=== PATIENT | male | born 1955 | race Caucasian/White ===

== ENCOUNTER 2018-03-29 19:20 | Emergency (ER) | payer MEDICARE, OTHER ==
[~2018-03-29] VITALS: Ht 185.4 cm; Wt 125.9 kg
[~2018-03-29 19:20] MED LIST: AMIO200T46 PO; AMLO2.5T78 PO; ATOR20TA38 PO; LISI-525 PO; METO-429 PO
[2018-03-29 19:32] VITALS: Ht 185.4 cm; Wt 125.9 kg
[2018-03-29] MEDS ORDERED: SOD CHLORIDE 0.9% 1,000 ML IV STA (20:31)
[2018-03-29] MEDS ORDERED: PANT40TA4 PO (21:32)
[2018-03-29] MEDS ORDERED: LISI40TA3 PO (21:32)
[2018-03-29] MEDS ORDERED: ATOR-2 PO (21:32)
[2018-03-29] MEDS ORDERED: ACET-141 PO (21:33)
[2018-03-29] MEDS ORDERED: CYAN500T46 PO (21:33)
[2018-03-29] MEDS ORDERED: LIDOCAINE 1% (MDV) 10 ML INJ INJ STA (22:16)
--- NOTE | 2018-03-29 22:32 | ERD ---
ER Documentation Chief Complaint Chief Complaint BIBA from home with c/o lac to left eyebrow s/p fall due to weakness/dizzy HPI 63-year-old male with a history of "brain tumor" status post resection on chemotherapy brought in by ambulance from home after feeling generally weak and dizzy while walking to the bathroom. He never lost consciousness but he fell against the wall hitting the front of his head. He did sustain a laceration to his left eyebrow. He denies any headache, nausea, vomiting, vision disturbance, focal weakness or numbness. He usually uses a walker or wheelchair at home but he was not using either when he was going to the bathroom. His last chemotherapy was a few days ago. He states that every time after chemotherapy, he has similar symptoms. Currently he has no other complaints. Denies any chest pain or shortness of breath. No recent illnesses. No fevers or chills. No recent vomiting or diarrhea ROS All systems reviewed and are negative except as per history of present illness. Medications Home Meds Reported Medications Cyanocobalamin* (Vitamin B12*) 500 Mcg Tab, 1000 MCG PO DAILY, TAB 03/29/18 Acetaminophen* (Acetaminophen*) 500 MG Extra Strength Tablet, 500 MG PO Q4H PRN for PAIN AND OR ELEVATED TEMP, TAB 03/29/18 Lisinopril* (Lisinopril*) 40 Mg Tablet, 40 MG PO DAILY, #30 TAB 03/29/18 Pantoprazole* (Pantoprazole*) 40 Mg Tablet.dr, 40 MG PO AC BREAKFAST, TAB 03/29/18 Atorvastatin* (Atorvastatin*) 80 Mg Tablet, 80 MG PO QHS, #30 TAB 03/29/18 Discontinued Scripts Amlodipine Besylate* (Amlodipine Besylate*) 2.5 Mg Tablet, 5 MG PO DAILY, #30 TAB Prov:VERENA VALENTINO MD 06/15/14 Metoprolol Tartrate* (Lopressor*) 50 Mg Tab, 50 MG PO BID, #60 TAB Prov:VERENA VALENTINO MD 06/14/14 Lisinopril* (Zestril*) 20 Mg Tab, 40 MG PO DAILY, #30 TAB Prov:VERENA VALENTINO MD 06/14/14 Atorvastatin Calcium* (Atorvastatin Calcium*) 20 Mg Tab, 20 MG PO HS, #30 TAB Prov:VERENA VALENTINO MD 06/14/14 Amiodarone Hcl* (Cordarone*) 200 Mg Tab, 200 MG PO DAILY, #30 TAB Prov:VERENA VALENTINO MD 06/14/14 Allergies Allergies: Coded Allergies: No Known Allergy (Unverified , 06/13/14) PMhx/Soc History of Surgery: Yes (Craniectomy with tumor resection) Anesthesia Reaction: No Hx Neurological Disorder: Yes (Brain tumor) Hx Respiratory Disorders: No Hx Cardiac Disorders: Yes (Hypertension, A. fib) Hx Psychiatric Problems: No Hx Miscellaneous Medical Probl: No Hx Alcohol Use: Yes (1/2 glass wine every 2-3 weeks) Hx Substance Use: No Hx Tobacco Use: No Smoking Status: Unknown if ever smoked FmHx Family History: No diabetes Physical Exam Vitals Vital Signs Date Temp Pulse Resp B/P (MAP) Pulse Ox O2 O2 Flow FiO2 Time Delivery Rate 03/29/18 87 13 172/127 99 Room Air 23:22 (142) 03/29/18 99 16 153/119 98 Room Air 21:09 (130) 03/29/18 98.7 95 20 162/120 100 19:32 (134) Physical Exam Const: No acute distress Head: Atraumatic Eyes: Normal Conjunctiva ENT: Normal External Ears, Nose and Mouth. Neck: Full range of motion. No meningismus. Resp: Clear to auscultation bilaterally Cardio: Regular rate and rhythm, no murmurs Abd: Soft, non tender, non distended. Normal bowel sounds Skin: No petechiae or rashes Back: No midline or flank tenderness Ext: No cyanosis, or edema Neur: Awake and alert Psych: Normal Mood and Affect Result Diagram: 03/29/18192703/29/181927 Results 24 hrs Laboratory Tests Test 03/29/18 19:27 03/29/18 19:28 03/29/18 21:10 Bedside Glucose 94 mg/dL White Blood Count 9.0 10^3/ul Red Blood Count 4.71 10^6/ul Hemoglobin 15.5 g/dl Hematocrit 47.1 % Mean Corpuscular Volume 100.0 fl Mean Corpuscular Hemoglobin 32.9 pg Mean Corpuscular 32.9 g/dl Hemoglobin Concent Red Cell Distribution Width 13.5 % Platelet Count 196 10^3/UL Mean Platelet Volume 10.1 fl Immature Granulocytes % 0.400 % Neutrophils % 76.7 % Lymphocytes % 10.8 % Monocytes % 10.2 % Eosinophils % 1.2 % Basophils % 0.7 % Nucleated Red Blood Cells % 0.0 /100WBC Immature Granulocytes # 0.040 10^3/ul Neutrophils # 6.9 10^3/ul Lymphocytes # 1.0 10^3/ul Monocytes # 0.9 10^3/ul Eosinophils # 0.1 10^3/ul Basophils # 0.1 10^3/ul Nucleated Red Blood Cells # 0.0 10^3/ul Sodium Level 141 mmol/L Potassium Level 4.3 mmol/L Chloride Level 101 mmol/L Carbon Dioxide Level 30 mmol/L Anion Gap 10 Blood Urea Nitrogen 14 mg/dl Creatinine 1.04 mg/dl Est Glomerular Filtrat > 60 mL/min Rate mL/min Glucose Level 105 mg/dl Calcium Level 9.7 mg/dl Troponin I < 0.012 ng/ml Urine Color YELLOW Urine Clarity CLEAR Urine pH 7.0 Urine Specific [place] 1.027 Urine Ketones NEGATIVE mg/dL Urine Nitrite NEGATIVE mg/dL Urine Bilirubin NEGATIVE mg/dL Urine Urobilinogen NEGATIVE mg/dL Urine Leukocyte Esterase NEGATIVE Pamela/ul Urine Hemoglobin NEGATIVE mg/dL Urine Glucose NEGATIVE mg/dL Urine Total Protein NEGATIVE mg/dl Current Medications Medications Dose Sig/José Luis Start Time Status Last (Trade) Ordered Route PRN Stop Time Admin Dose Reason Admin Sodium 1,000 ml @ Q1H STAT 03/29/18 DC 03/29/18 Chloride 1,000 mls/hr IV 20:31 20:46 03/29/18 21:30 Lidocaine 10 ml ONCE STAT 03/29/18 Cancel HCl INJ 22:16 (Lidocaine 03/29/18 22:17 1% (Mdv) 10 ml) Lidocaine 10 ml ONCE ONCE 03/29/18 DC (Xylocaine INJ 22:38 1% (Mdv) 20 03/29/18 22:39 ml) Procedures/MDM EMERGENT LABS AND DIAGNOSTIC STUDIES: Lab Results above were reviewed and interpreted by me. CBC: no anemia or evidence of infection CMP: No evidence of electrolyte abnormality, renal failure, hypoglycemia, liver failure, or biliary obstruction Troponin within normal limits, not indicative of cardiac ischemia UA: no evidence of infection 12-lead EKG was interpreted by Jayda Mendez MD: Sinus rhythm with first-degree AV block Normal axis Nonspecific interventricular conduction delay No acute ST or T wave changes suggestive of acute ischemia or STEMI. Radiology Results as interpreted by Radiology below were reviewed by Ashley Mendez MD: Chest x-ray shows no acute abnormalities CT head shows no acute abnormalities Initial Nursing notes reviewed. Previous Medical Records requested via the Electronic Health Record. EMERGENCY DEPARTMENT COURSE / MEDICAL DECISION MAKING: Laceration Repair by me: Anesthesia: 1% lidocaine locally Location: Left medial eyebrow Tendon/Joint/Nerves: No injury Foreign body: None detected after copious irrigation and exploration Technique: Simple Interrupted Sutures x 3 Complexity: No subcutaneous sutures/mucosal repair/edge excision Post Closure Length: 1.5 cm 48 hour wound check. Scar minimization instructions given. Patient is presenting after a ground-level fall after feeling generally weak. Vitals are stable and he is afebrile. Neurovascularly intact on exam. He did have a head injury with a facial laceration. CT head was done and did not show any acute intracranial abnormalities and did not show any skull fracture. EKG is not consistent with acute coronary syndrome. Troponin is within normal limits. Labs are unremarkable. No evidence of acute infection. Patient states that he would rather go home and did not be admitted. He states that this happens frequently after chemotherapy. He feels much better now upon reevaluation and would like to go home. Return precautions discussed. He has a walker and wheelchair at home. He is receiving assistance from his roommate. Return precautions were discussed. Laceration was repaired and suture removal was recommended within 5-7 days. Patient's blood pressure was elevated (>120/80) but appears stable without evidence of hypertensive emergency or urgency. The patient was counseled about the risks of hypertension and urged to pursue outpatient monitoring and therapy within a week with their primary care physician. Departure Diagnosis: Primary Impression: Fall Encounter type: initial encounter Qualified Codes: W19.XXXA - Unspecified fall, initial encounter Additional Impressions: Facial laceration Encounter type: initial encounter Qualified Codes: S01.81XA - Laceration without foreign body of other part of head, initial encounter Generalized weakness Condition: Stable EKANGELA BOCANEGRA MD Mar 29, 2018 22:32
[2018-03-29] MEDS ORDERED: LIDOCAINE 1% (MDV) 20 ML INJ INJ ONE (22:38)
[2018-03-29 23:22] VITALS: BP 172/127; PULSE 87; RESP 13
== END 2018-03-29 23:30 | disposition home or self-care (01) ==
LOC: E/R 19:20
DX: S01.112A Laceration without foreign body of left eyelid and periocular area, initial encounter (principal); R53.1 Weakness; I10 Essential (primary) hypertension; R51 Headache; R55 Syncope and collapse; W01.198A Fall on same level from slipping, tripping and stumbling with subsequent striking against other object, initial encounter; Y92.9 Unspecified place or not applicable; Z85.841 Personal history of malignant neoplasm of brain
CPT/HCPCS: 12011; 36415; 70450; 71045; 80048; 81003; 82962; 84484; 85025; 99285; J7030; 93005

== ENCOUNTER 2018-07-11 15:45 | Emergency (ER) | payer MEDICARE ==
[~2018-07-11] VITALS: Ht 185.4 cm; Wt 120.5 kg
[~2018-07-11 15:45] MED LIST changes: +ACET-141 PO; -AMIO200T46 PO; -AMLO2.5T78 PO; +ATOR-2 PO; -ATOR20TA38 PO; +CYAN500T46 PO; -LISI-525 PO; +LISI40TA3 PO; -METO-429 PO; +PANT40TA4 PO
[2018-07-11 16:02] VITALS: Ht 185.4 cm; Wt 120.5 kg
[2018-07-11] MEDS ORDERED: LACTATED RINGER'S 1,000 ML IV STA (16:12)
[2018-07-11] MEDS ORDERED: LIDOCAINE 1% (MDV) 20 ML INJ SC ONE (16:30)
--- NOTE | 2018-07-11 17:18 | ERD ---
ER Documentation Chief Complaint Chief Complaint glf with head injury-no ko. lac to the head HPI 63-year-old male with a history of "brain tumor" status post resection on chemotherapy brought in by ambulance from home after falling out of his wheelchair. He denies seizures or syncopal episode, he had no loss of bowel or bladder control. Patient states this happens to him about once per month and patient was here 4 months ago for exactly the same thing. He denies any vomiting, vision disturbance, focal weakness or numbness. He usually uses a walker or wheelchair at home and states he simply fell and lost balance when transferring from wheelchair to bed. His last chemotherapy was a few days ago. He states that every time after chemotherapy, he has similar symptoms. Currently he has no other complaints. Denies any chest pain or shortness of breath. No recent illnesses. No fevers or chills. No recent vomiting or d iarrhea ROS All systems reviewed and are negative except as per history of present illness. Medications Home Meds Reported Medications Acetaminophen* (Acetaminophen*) 500 MG Extra Strength Tablet, 500 MG PO Q4H PRN for PAIN AND OR ELEVATED TEMP, TAB 03/29/18 Lisinopril* (Lisinopril*) 40 Mg Tablet, 40 MG PO DAILY, #30 TAB 03/29/18 Pantoprazole* (Pantoprazole*) 40 Mg Tablet.dr, 40 MG PO AC BREAKFAST, TAB 03/29/18 Atorvastatin* (Atorvastatin*) 80 Mg Tablet, 80 MG PO QHS, #30 TAB 03/29/18 Discontinued Reported Medications Cyanocobalamin* (Vitamin B12*) 500 Mcg Tab, 1000 MCG PO DAILY, TAB 03/29/18 Allergies Allergies: Coded Allergies: No Known Allergy (Unverified , 07/11/18) PMhx/Soc History of Surgery: Yes (Craniectomy with tumor resection) Anesthesia Reaction: No Hx Neurological Disorder: Yes (Brain tumor) Hx Respiratory Disorders: No Hx Cardiac Disorders: Yes (Hypertension, A. fib) Hx Psychiatric Problems: No Hx Miscellaneous Medical Probl: No Hx Alcohol Use: Yes (1/2 glass wine every 2-3 weeks) Hx Substance Use: No Hx Tobacco Use: No Smoking Status: Never smoker Physical Exam Vitals Vital Signs Date Temp Pulse Resp B/P (MAP) Pulse Ox O2 O2 Flow FiO2 Time Delivery Rate 07/11/18 97.7 90 20 110/84 100 Room Air 19:20 (93) 07/11/18 98 18 127/117 98 18:13 (120) 07/11/18 97.7 113 18 150/89 97 Room Air 16:36 (109) 07/11/18 97.7 107 18 155/78 97 16:02 (103) Physical Exam Const: No acute distress, afebrile, appears dehydrated HEENT: 7 cm laceration across the mid forehead, no cervical spine deformity, dry mucous membranes Resp: Clear to auscultation bilaterally Cardio: Tachycardic and regular Abd: Soft, non tender, non distended. Skin: No petechiae or rashes. Larger laceration to the mid forehead Back: No midline or flank tenderness Ext: No cyanosis, or edema, distal pulses equal bilateral Neur: Awake and alert x3, no focal deficits or facial asymmetry, pupils equal round reactive to light, moving all extremities Psych: Normal Mood and Affect Result Diagram: 07/11/18 1626 07/11/18 1626 Results 24 hrs Laboratory Tests Test 07/11/18 16:26 White Blood Count 5.4 10^3/ul Red Blood Count 3.79 10^6/ul Hemoglobin 13.2 g/dl Hematocrit 39.1 % Mean Corpuscular Volume 103.2 fl Mean Corpuscular Hemoglobin 34.8 pg Mean Corpuscular Hemoglobin Concent 33.8 g/dl Red Cell Distribution Width 16.7 % Platelet Count 55 10^3/UL Mean Platelet Volume 10.5 fl Immature Granulocytes % 0.200 % Neutrophils % % Segmented Neutrophils % (Manual) 82 % Lymphocytes % % Lymphocytes % (Manual) 9 % Reactive Lymphocytes % (Manual) 3 % Monocytes % % Monocytes % (Manual) 6 % Eosinophils % % Basophils % % Nucleated Red Blood Cells % 0.0 /100WBC Immature Granulocytes # 0.010 10^3/ul Neutrophils # 10^3/ul Lymphocytes (Manual) 0.4 10^3/ul Lymphocytes # 10^3/ul Reactive Lymphocytes # 0.1 10^3/ul Monocytes # 10^3/ul Monocytes # (Manual) 0.3 10^3/ul Eosinophils # 10^3/ul Basophils # 10^3/ul Nucleated Red Blood Cells # 10^3/ul Giant Platelets 2 % Anisocytosis 1+ Sodium Level 142 mmol/L Potassium Level 3.8 mmol/L Chloride Level 109 mmol/L Carbon Dioxide Level 24 mmol/L Anion Gap 9 Blood Urea Nitrogen 16 mg/dl Creatinine 1.05 mg/dl Est Glomerular Filtrat Rate mL/min > 60 mL/min Glucose Level 143 mg/dl Calcium Level 9.2 mg/dl Troponin I < 0.012 ng/ml Ethyl Alcohol Level < 10.0 mg/dl Current Medications Medications Dose Sig/José Luis Start Time Status Last (Trade) Ordered Route PRN Stop Time Admin Dose Reason Admin Lidocaine 20 ml ONCE ONCE 07/11/18 DC (Xylocaine SC 16:30 07/11/18 1% (Mdv) 20 16:31 ml) Lactated 1,000 ml @ Q1H STAT 07/11/18 DC 07/11/18 Ringer's 1,000 mls/hr IV 16:12 07/11/18 17:12 17:11 Procedures/MDM IV line was established patient was placed on potline monitor rhythm strip revealed a sinus tachycardia at 110 bpm with upright P and T waves. Patient was afebrile I administered 1 L normal saline IV. Forehead laceration was inspected and irrigated copiously with normal saline, subcutaneous lidocaine 1% applied for anesthetic purposes, once anesthesia took effect I applied 4 4-O nonabsorbable sutures with good approximation of the skin, final length laceration was 7 cm. Laceration Repair by me: Anesthesia: 1% lidocaine locally Location: Forehead Tendon/Joint/Nerves: No injury Foreign body: None detected after copious irrigation and exploration Technique: Simple Interrupted Sutures Complexity: No subcutaneous sutures/mucosal repair/edge excision Post Closure Length: 7 cm Patient's bleeding was easily controlled in the department and there is no indication of anemia. No evidence of compartment syndrome, neurologic injury, vascular injury, open joint, tendon laceration, or foreign body. Patient is appropriate for outpatient follow up. 48 hour wound check. Scar minimization instructions given. One AP view of the chest performed, read by me reveals no acute infiltrates, normal mediastinum, sharp costophrenic and cardiac borders, no air under the diaphragm. Otherwise unremarkable chest x-ray. CBC and electrolytes were unremarkable, troponin negative, ethanol level negative. CT scan of the brain was negative for acute bleed mass or shift, chronic changes noted. EKG performed, read by me revealed a sinus tachycardia at 106 bpm, left axis deviation, right ventricular conduction delay QRS duration 118 ms, no concerning ST elevations or depressions noted Differential diagnoses considered, included but not limited to acute coronary syndrome, pulmonary embolism, aortic dissection, abdominal aortic aneurysm, sepsis, stroke, meningitis, encephalitis, pneumonia, appendicitis, cholecystitis, bowel obstruction, pyelonephritis, nephrolithiasis, cystitis, as well as metabolic, hematologic, and electrolyte abnormalities. As well as abscess, cellulitis, fractures, and dislocations. Patient feels much better at this time, and vital signs are normal, symptoms have improved. I did give strict instructions to return to the ED if symptoms continue or worsen, patient will otherwise follow-up with primary care physician. Patient understood instructions and agreed to plan. Disclaimer: Inadvertent spelling and grammatical errors are likely due to EHR/d ictation software use and do not reflect on the overall quality of patient care. Also, please note that the electronic time recorded on this note does not necessarily reflect the actual time of the patient encounter. Departure Diagnosis: Primary Impression: Fall Encounter type: initial encounter Qualified Codes: W19.XXXA - Unspecified fall, initial encounter Additional Impressions: Forehead laceration Encounter type: initial encounter Qualified Codes: S01.81XA - Laceration without foreign body of other part of head, initial encounter Acute dehydration Brain mass Condition: Good VERONICA RAMAN MD Jul 11, 2018 17:18
[2018-07-11 19:20] VITALS: BP 110/84; PULSE 90; RESP 20
== END 2018-07-11 19:39 | disposition home or self-care (01) ==
LOC: E/R 15:45
DX: S01.81XA Laceration without foreign body of other part of head, initial encounter (principal); I10 Essential (primary) hypertension; E86.0 Dehydration; G93.89 Other specified disorders of brain; C71.9 Malignant neoplasm of brain, unspecified; W05.0XXA Fall from non-moving wheelchair, initial encounter; Y92.9 Unspecified place or not applicable
CPT/HCPCS: 12014; 36415; 70450; 71045; 80048; 80307; 84484; 85025; 93005; 99285; J7120